=== PATIENT | female | born 1945 | race Caucasian/White ===

== ENCOUNTER 2020-05-17 10:27 | Inpatient (IN) | payer MEDICARE, OTHER, SELFPAY ==
[2020-05-17] VITALS (91 sets, daily range): BP systolic 88–124; BP diastolic 56–78; PULSE 74–99; RESP 12–27; TEMP 36.5–36.9; O2SAT 86–98; BMI 38.6; BMI 33.2
--- NOTE | 2020-05-17 10:41 | XR_ITS ---
WS: [id number] EXAM: AP CHEST: PORTABLE UPRIGHT DATE OF EXAM: 05/17/2020, 1051 hours COMPARISON: Chest x-ray from 03/03/2015 HISTORY: Patient is 74 years old with known COPD. Complaining shortness of breath. Positive for Covid-19 infec tion.. FINDINGS: The cardiac silhouette is normal in size. The mediastinal contours show slight calcified plaque. The pulmonary vascularity is normal. Chronic lung changes again seen. There has been interval devel opment of interstitial infiltrate or fibrosis within the mid and lower lung ramos peripherally in janeth th lungs. Upper lung zones for the most part appear to be spared. There is no effusion or pneumothor ax. No acute bony abnormality is seen. XR/XR chest 1V portable [id number] IMPRESSION: Chronic lung changes. Interval development of peripheral interstitial infiltrat e as described. Whether this represents progression of pulmonary fibrosis versu s interstitial pneumonitis is uncertain. Surveillance recommended.
--- NOTE | 2020-05-17 10:44 | W.ED.SOB ---
HPI - SOB/Dyspnea General: Chief Complaint: Shortness of Breath/Dyspnea Stated Complaint: shortness of breath Covid + Time Seen by Provider: 05/17/20 10:28 History of Present Illness: HPI Narrative: 74-year-old female who comes in complaining of shortness of breath. She has a known COVID positive patient. She initially began having symptoms about 10 days ago 5 days ago was swabbed for COVID and tested positive the result came back 3 days ago. Her was also tested in that same timeframe and was transferred out of our ER last night in the early hours of this morning with severe respiratory compromise. This patient is a known history of COPD and has had progressively worsening shortness of breath cough and congestion. She denies productive cough. She is not really had a fever at all. She has had significant myalgias as well. She is normally on 2 L/min oxygen and she is now requiring 3 to 4 L/min to maintain sats in the low 90s. MD elicited complaint: shortness of breath and cough Pertinent past history: COPD Onset (ago): day(s) Context: recent illness Timing: constant and progressively worsening Severity: severe Exacerbating factors: exertion Relieving factors: oxygen and rest Known history of: COPD and other (Known COVID positive patient) Associated symptoms: Reports chest congestion and cough; Deny abdominal pain, fever(s), nausea or vomiting Treatment prior to arrival: none Review of Systems Const: Denies: fever(s), chills, body aches, change in appetite, fatigue or malaise ENMT: Denies: throat pain, ear or mastoid pain, nasal discharge or nasal congestion Resp: Reports: chest congestion GI: Denies: abdominal pain, nausea, vomiting, hematemesis, coffee ground emesis, diarrhea, constipation, bloating, hematochezia or melena : Denies: flank pain, difficulty voiding, dysuria, urinary frequency or urinary urgency Skin/Breast: Denies: rash or pruritus PFSH ED PFSH: Medical History (Updated 05/17/20 @ 14:55 by Yovany Ricks DO) COPD (chronic obstructive pulmonary disease) Moderate to severe, last PFT from 2014 showed FEV1 47% Hypertension Surgical History (Updated 05/17/20 @ 14:45 by Dana Arrieta DO) No significant past surgical history Family History (Updated 05/17/20 @ 14:46 by Dana Arrieta DO) Father CAD (coronary artery disease) Social History (Updated 05/17/20 @ 14:46 by Dana Arrieta DO) Smoking and tobacco status: former smoker Alcohol intake: never Substance/Drug Use: never Household members: spouse Marital status: Current occupational status: retired Previous occupational history: Worked for the [employer] Department Physical Exam Const: COMMON NORMALS: no acute distress GENERAL APPEARANCE: cooperative and comfortable ORIENTATION/CONSCIOUSNESS: Yes awake, Yes oriented to person, Yes oriented to place and Yes oriented to time HENMT: COMMON NORMALS: normocephalic and atraumatic HEAD & SCALP: normocephalic and atraumatic Eye: COMMON NORMALS: Equal, round and reactive pupils present, EOMs intact bilaterally, conjunctivae normal and no scleral icterus CONJUNCTIVA: Yes conjunctivae normal PUPIL: Yes Equal, round and reactive pupils present Neck/C-Spine: COMMON NORMALS: full ROM, no lymphadenopathy, supple and no JVD Lymph: LYMPHATIC: no lymphadenopathy noted and no lymphedema noted Resp: AUSCULTATION: rhonchi and wheezes expiratory wheezes and throughout Cardio: COMMON NORMALS: no JVD, regular rate, regular rhythm and No murmurs present (Cardio) RATE: regular rate RHYTHM: regular rhythm GI: COMMON NORMALS: Soft to palpation and No hepatosplenomegaly present AUSCULTATION: Yes normoactive bowel sounds PALPATION: Yes Soft to palpation, No Tenderness to palpation present (GI), No Guarding due to palpation present (GI) and Yes No hepatosplenomegaly present Extremity: COMMON NORMALS: normal to inspection, capillary refill normal, no clubbing, cyanosis or edema, no calf tenderness and no pedal edema Neuro: SENSORIUM/ORIENTATION: Yes oriented to person, Yes oriented to place and Yes oriented to time Skin: COMMON NORMALS: no rashes or lesions noted GENERAL SKIN EXAM: no rashes or lesions noted Course Vital Signs: Vital signs: Vital Signs Temperature 98 F 05/17/20 13:00 Pulse Rate 86 05/17/20 14:25 Respiratory Rate 23 H 05/17/20 14:25 Blood Pressure 97/64 05/17/20 14:25 Pulse Oximetry 93 05/17/20 14:25 MDM - SOB/Dyspnea MDM Narrative: Medical decision making narrative: Reviewed her inflammatory labs she is known to be COVID positive she is requiring more oxygen than she normally is on 2 L/min discussed with Dr. Arrieta who is running the VICU this week we will go ahead and give her dexamethasone 6 mg started on room does severe the initial loading dose. Orders have been written patient will go to the VICU I have discussed the course of care with the patient she expressed understanding. Lab Data: Labs: Lab Results 05/17/20 05/17/20 05/17/20 Range/Units 10:37 10:49 10:49 WBC (4.0-10.0) 10^3/ uL RBC (4.1-5.3) 10^6/u L Hgb (11.5-15.3) g/dL Hct (37.0-47.0) % MCV (81-99) fL MCH (28.0-34.0) pg MCHC (30.0-36.0) g/dL RDW (12.1-15.1) % Plt Count (130-400) 10^3/c mm MPV (7.4-10.4) fL Neut % (Auto) % Lymph % (Auto) % [place] % (Auto) % Eos % (Auto) % Baso % (Auto) % Neut # (Auto) (1.8-7.7) 10^3/u L Lymph # (Auto) (0.8-4.8) 10^3/u L [place] # (Auto) (0.2-0.9) 10^3/u L Eos # (Auto) (0.0-0.8) 10^3/u L Baso # (Auto) (0.0-0.1) 10^3/u L Nucleated RBC % (a uto) % Nucleated RBCs # /100WBC PT 13.10 (12.1-14.9) SECO NDS INR 0.96 (0.8-1.2) APTT 29.7 (23.9-36.7) SECO NDS Fibrinogen 612 H (174-498) mg/dL D-Dimer 0.82 H (0-0.59) ug/mIFE U Specimen Type Arterial Sample Site Radial, left ABG pH 7.41 (7.35-7.45) ABG pCO2 35.5 (35-45) mmHg ABG pO2 59.9 L (80.0-100.0) mmH g ABG HCO3 22.2 (22-26) mmol/L ABG O2 Saturation 92.7 ABG Base Excess -1.9 (-2.0-2.0) mmol/ L Lonnie Test Pos A-a O2 Gradient 19.8 H (5-10) mmHg Hematocrit 50.8 H (37-47) % Hgb O2 Saturation 91.1 L (95-100) % Carboxyhemoglobin 0.9 (0.4-20.1) %THgb Methemoglobin 0.8 (0.4-1.5) % Total Hemoglobin 16.6 H (12-16) g/dL Sodium 128.0 L 128 L (131-143) mmol/L Potassium 4.0 4.2 (3.5-5.0) mmol/L Glucose 106.0 108 (70-115) mg/dL Ionized Calcium 1.1 (1.1-1.4) mmol/L O2 Delivery Device Nc O2 Liters/Min 4.0 % FiO2 36.0 % Senior Data Developer ID Cak Chloride 91 L (98-107) mmol/L Carbon Dioxide 23 (22-29) mmol/L Anion Gap 18.2 (5-19) BUN 37 H (8-23) mg/dL Creatinine 1.3 H (0.5-0.9) mg/dL GFR Calculation Not Reportable Calculated Osmolal ity 264 L (285-295) mOsm/k g Lactic Acid (0.5-2.2) mmol/L Calcium 8.4 L (8.5-10.5) mg/dL Magnesium 1.9 (1.7-2.3) mg/dL Total Bilirubin 0.6 (0.15-1.2) mg/dL AST 23 (0-32) U/L ALT 25 (0-33) U/L Alkaline Phosphata se 70 (35-105) IU/L Lactate Dehydrogen ase 337 H (135-214) U/L C-Reactive Protein 114.6 H (0.0-4.9) mg/L NT-Pro-B Natriuret Pep 107 (0-125) pg/mL Total Protein 7.4 (6.6-8.7) g/dL Albumin 3.8 (3.5-5.2) g/dL Globulin 3.6 (1.3-4.6) g/dL Procalcitonin 0.33 (0-0.5) ng/mL 05/17/20 05/17/20 Range/Units 10:49 10:49 WBC 7.5 (4.0-10.0) 10^3/ uL RBC 5.47 H (4.1-5.3) 10^6/u L Hgb 15.9 H (11.5-15.3) g/dL Hct 48.6 H (37.0-47.0) % MCV 88.8 (81-99) fL MCH 29.1 (28.0-34.0) pg MCHC 32.7 (30.0-36.0) g/dL RDW 14.3 (12.1-15.1) % Plt Count 243 (130-400) 10^3/c mm MPV 9.5 (7.4-10.4) fL Neut % (Auto) 80.9 % Lymph % (Auto) 8.9 % [place] % (Auto) 8.9 % Eos % (Auto) 0.1 % Baso % (Auto) 0.3 % Neut # (Auto) 6.03 (1.8-7.7) 10^3/u L Lymph # (Auto) 0.7 L (0.8-4.8) 10^3/u L Dallas # (Auto) 0.7 (0.2-0.9) 10^3/u L Eos # (Auto) 0.0 (0.0-0.8) 10^3/u L Baso # (Auto) 0.0 (0.0-0.1) 10^3/u L Nucleated RBC % (a uto) 0 % Nucleated RBCs # 0.0 /100WBC PT (12.1-14.9) SECO NDS INR (0.8-1.2) APTT (23.9-36.7) SECO NDS Fibrinogen (174-498) mg/dL D-Dimer (0-0.59) ug/mIFE U Specimen Type Sample Site ABG pH (7.35-7.45) ABG pCO2 (35-45) mmHg ABG pO2 (80.0-100.0) mmH g ABG HCO3 (22-26) mmol/L ABG O2 Saturation ABG Base Excess (-2.0-2.0) mmol/ L Lonnie Test A-a O2 Gradient (5-10) mmHg Hematocrit (37-47) % Hgb O2 Saturation (95-100) % Carboxyhemoglobin (0.4-20.1) %THgb Methemoglobin (0.4-1.5) % Total Hemoglobin (12-16) g/dL Sodium (131-143) mmol/L Potassium (3.5-5.0) mmol/L Glucose (70-115) mg/dL Ionized Calcium (1.1-1.4) mmol/L O2 Delivery Device O2 Liters/Min % FiO2 % Senior Data Developer ID Chloride (98-107) mmol/L Carbon Dioxide (22-29) mmol/L Anion Gap (5-19) BUN (8-23) mg/dL Creatinine (0.5-0.9) mg/dL GFR Calculation Calculated Osmolal ity (285-295) mOsm/k g Lactic Acid 1.1 (0.5-2.2) mmol/L Calcium (8.5-10.5) mg/dL Magnesium (1.7-2.3) mg/dL Total Bilirubin (0.15-1.2) mg/dL AST (0-32) U/L ALT (0-33) U/L Alkaline Phosphata se (35-105) IU/L Lactate Dehydrogen ase (135-214) U/L C-Reactive Protein (0.0-4.9) mg/L NT-Pro-B Natriuret Pep (0-125) pg/mL Total Protein (6.6-8.7) g/dL Albumin (3.5-5.2) g/dL Globulin (1.3-4.6) g/dL Procalcitonin (0-0.5) ng/mL Discharge Plan Discharge Patient Disposition: Admitted As Inpatient Admit Provider: Dana Arrieta Clinical Impression: COVID-19, COPD (chronic obstructive pulmonary disease), Obstructive sleep apnea, Hypertension Condition: Stable Interventions: ED Discharge Assessment Last Done: 05/17/20 12:32 ED Charges Last Done: 05/17/20 12:32 Discharge Date/Time: 05/17/20 12:33 Coding Level of Care Code ED Bakery Worker Conveyor Line for g Fwd Exam Comprehensive
[2020-05-17 10:49] LABS: ABG PCO2 35.5 mmHg (35-45); ABG PH Result 7.41 (7.35-7.45); Alveolar-Arterial Oxygen Gradi 19.8 mmHg (5-10); Arterial Blood Gas Hematocrit 50.8 % (37-47); Base Excess ABG -1.9 mmol/L (-2.0-2.0); Blood Gas Allen Test Pos; Blood Gas Operator Identificat CAK; Blood Gas Sample Site Radial, left; Blood Gas Sample Type Arterial; Carboxyhemoglobin 0.9 %THgb (0.4-20.1); HCO3 ABG 22.2 mmol/L (22-26); HGB O2 Sat 91.1 % (95-100); Ionized Calcium Level - ABG 1.1 mmol/L (1.1-1.4); Methemoglobin 0.8 % (0.4-1.5); Oxygen Device NC; Oxygen Saturation ABG 92.7; PO2 ABG 59.9 mmHg (80.0-100.0); Total Hemoglobin 16.6 g/dL (12-16)
[2020-05-17 11:01] LABS: Basophils % 0.3 %; Eosinophils % 0.1 %; Hematocrit 48.6 % (37.0-47.0); Hemoglobin 15.9 g/dL (11.5-15.3); Lymphocytes # 0.7 10^3/uL (0.8-4.8); Lymphocytes % 8.9 %; Mean Corpuscular HGB Conc 32.7 g/dL (30.0-36.0); Mean Corpuscular Hemoglobin 29.1 pg (28.0-34.0); Mean Corpuscular Volume 88.8 fL (81-99); Mean Platelet Volume 9.5 fL (7.4-10.4); Monocytes # 0.7 10^3/uL (0.2-0.9); Monocytes % 8.9 %; Neutrophils # 6.03 10^3/uL (1.8-7.7); Neutrophils % 80.9 %; Nucleated Red Blood Cells % 0 %; Platelet Count 243 10^3/cmm (130-400); Red Blood Count 5.47 10^6/uL (4.1-5.3); Red Cell Distribution Width 14.3 % (12.1-15.1); White Blood Count 7.5 10^3/uL (4.0-10.0)
[2020-05-17 11:13] LABS: INR 0.96 (0.8-1.2)
[2020-05-17 11:14] LABS: Fibrinogen 612 mg/dL (174-498); Partial Thromboplastin Time 29.7 SECONDS (23.9-36.7)
[2020-05-17 11:17] LABS: D Dimer 0.82 ug/mIFEU (0-0.59)
[2020-05-17 11:18] LABS: Lactic Sepsis W/Reflex 1.1 mmol/L (0.5-2.2)
[2020-05-17] MEDS: albuterol 8 gm MDI 2 PUFF INHALATION (11:24)
[2020-05-17 11:29] LABS: NT Pro B Type Natriuretic Pept 107 pg/mL (0-125); Procalcitonin 0.33 ng/mL (0-0.5)
[2020-05-17] MEDS: dexamethasone 10 mg/mL INJ 6 MG IVP (11:29)
--- NOTE | 2020-05-17 11:30 | ECG_ITS ---
[facility] Test Date: 2020-05-17 Pat Name: Dorothy Ardon Department: Room: ICU19 Gender: Female Animal Care Giver: : 1945 Requested By: Yovany Pickering Order Number: [id number] Shabana MD: Jim Hung M.D. Measurements Intervals Runge Rate: 94 P: 71 MD: 167 QRS: -3 QRSD: 84 T: 50 QT: 350 QTc: 438 Interpretive Statements SINUS RHYTHM INDETERMINATE AXIS PATTERN CONSISTENT WITH PULMONARY DISEASE Inferior myocardial infarction probably old No previous ECG available for comparison Electronically Signed On 05-17-2020 19:16:42 CDT by Jim Hung M.D. [email or web address]
[2020-05-17 11:40] LABS: Alanine Aminotransferase 25 U/L (0-33); Albumin Level 3.8 g/dL (3.5-5.2); Alkaline Phosphatase 70 IU/L (35-105); Anion Gap 18.2 (5-19); Aspartate Amino Transferase 23 U/L (0-32); Blood Urea Nitrogen 37 mg/dL (8-23); C Reactive Protein 114.6 mg/L (0.0-4.9); Calcium 8.4 mg/dL (8.5-10.5); Carbon Dioxide 23 mmol/L (22-29); Chloride 91 mmol/L (98-107); Globulin 3.6 g/dL (1.3-4.6); Glucose 108 mg/dL (65-115); Lactate Dehydrogenase 337 U/L (135-214); Magnesium 1.9 mg/dL (1.7-2.3); Osmolality Calculated 264 mOsm/kg (285-295); Potassium 4.2 mmol/L (3.5-5.1); Sodium 128 mmol/L (136-145); Total Bilirubin 0.6 mg/dL (0.15-1.2); Total Protein 7.4 g/dL (6.6-8.7)
--- NOTE | 2020-05-17 13:24 | PC.NURSE ---
patient transfered herself with standby assist to her new bed while in the [place] then we brought her into room 1 of [facility]. she is tired. was sating 90 on 4 liters so went to 5 liters. albuterol inhaler at bedside.
--- NOTE | 2020-05-17 14:31 | NUR.SHIFT ---
scds ordered but at this time none available
--- NOTE | 2020-05-17 14:42 | PM.HP ---
Providers/Chief Complaint Admitting Physician: Dana Arrieta DO Primary Care Provider: Marlene Nesbitt APN Chief Complaint: shortness of breath Covid + History of Present Illness Dorothy Ardon is a 74 year old female with a past medical history of COPD and obstructive sleep apnea that presented to the emergency department today for increasing shortness of breath. Patient had been seen on Tuesday due to symptoms of increasing cough and shortness of breath as well as fatigue that started over last weekend. Patient reports that 2 weeks ago she was exposed to her brother who was positive for COVID-19, he was not aware of this at that time. Patient reports that her symptoms began to progress over the past week to the point that she had to come into the ER today for further evaluation and treatment. She reports that she has had productive cough, shortness of breath, loss of sense of smell and taste, generalized malaise and fatigue. Patient reports that her was seen and evaluated in the emergency department last night required to an outside facility as he required intubation due to COVID-19 viral pneumonia. Patient reports that she is chronically on 2 L of oxygen by nasal cannula at baseline, follows with a trolley car overhauler in [place]. Review of Systems Const: Reports: chills, body aches, fatigue and malaise; Denies: fever(s) Eyes: Denies: change in vision ENMT: Reports: other (Loss of smell, loss of taste); Denies: nasal congestion Card: Denies: chest pain, palpitations or edema Resp: Reports: dyspnea and productive cough; Denies: hemoptysis GI: Reports: nausea and diarrhea; Denies: abdominal pain, vomiting, constipation, hematochezia or melena : Denies: dysuria or hematuria Musc: Denies: extremity pain or muscle cramps Skin/Breast: Denies: rash or new lesions Neuro: Denies: headache(s) or dizziness Psych: Denies: anxiety or depression Endo: Denies: polyuria or hot flashes Edwardo/Lymph: Denies: easy bruising or easy bleeding Medications/Allergies Home Medications Medication Instructions Recorded Confirmed Last Taken Type Symbicort 05/17/20 Unknown History aspirin [Aspirin Childrens] 81 mg PO DAILY 05/17/20 05/17/20 Unknown History cholecalciferol (vitamin D3) 50,000 unit PO DAILY 05/17/20 05/17/20 Unknown History [Vitamin D3] lisinopril 2.5 mg PO DAILY 05/17/20 05/17/20 Unknown History triamterene-hydrochlorothiazid 1 cap PO DAILY 05/17/20 05/17/20 Unknown History Allergies Allergy/AdvReac Type Severity Reaction Status Date / Time No Known Allergies Allergy Verified 05/17/20 13:55 PFSH Acute PFSH: Medical History (Updated 05/17/20 @ 14:46 by Dana Arrieta DO) COPD (chronic obstructive pulmonary disease) Moderate to severe, last PFT from 2014 showed FEV1 47% Hypertension Surgical History (Updated 05/17/20 @ 14:45 by Dana Arrieta DO) No significant past surgical history Family History (Updated 05/17/20 @ 14:46 by Dana Arrieta DO) Father CAD (coronary artery disease) Social History (Updated 05/17/20 @ 14:46 by Dana Arrieta DO) Smoking and tobacco status: former smoker Alcohol intake: never Substance/Drug Use: never Household members: spouse Marital status: Current occupational status: retired Previous occupational history: Worked for the [employer] Female Reproductive History: Date of last menstrual period: 05/15/00 Vitals/I&O/Wt Last Vital Signs Temp 98 F 05/17/20 13:00 Pulse 86 05/17/20 14:25 Resp 23 H 05/17/20 14:25 BP 97/64 05/17/20 14:25 Pulse Ox 93 05/17/20 14:25 Weight last 48 hrs Weight 93.44 kg Weight 98.883 kg Physical Exam Const: COMMON NORMALS: patient oriented x3 and alert GENERAL APPEARANCE: cooperative and ill appearing ORIENTATION/CONSCIOUSNESS: Yes awake, Yes oriented to person, Yes oriented to place and Yes oriented to time HENMT: COMMON NORMALS: normocephalic and atraumatic HEAD & SCALP: normocephalic and atraumatic Eye: COMMON NORMALS: Equal, round and reactive pupils present PUPIL: Yes Equal, round and reactive pupils present Neck/C-Spine: COMMON NORMALS: supple GENERAL: Yes normal visual inspection Resp: COMMON NORMALS: normal respiratory effort EFFORT & INSPECTION: Yes symmetric chest movement and Yes tachypneic AUSCULTATION: no rhonchi and no wheezes OTHER: Diminished breath sounds bilaterally with prolonged expiratory phase Cardio: COMMON NORMALS: regular rate, regular rhythm and No murmurs present (Cardio) RATE: regular rate RHYTHM: regular rhythm GI: COMMON NORMALS: Soft to palpation and non-tender INSPECTION: No abdominal distension AUSCULTATION: Yes normoactive bowel sounds PALPATION: Yes Soft to palpation : COMMON NORMALS: Yes no CVA tenderness BLADDER/KIDNEY EXAM: Yes no CVA tenderness Back/Pelvis: COMMON NORMALS: no CVA tenderness Extremity: COMMON NORMALS: no clubbing, cyanosis or edema and no calf tenderness Neuro: COMMON NORMALS: patient oriented x3, CN's II-XII intact bilaterally, moves all extremities and no focal motor deficits SENSORIUM/ORIENTATION: Yes alert, Yes oriented to person, Yes oriented to place and Yes oriented to time SPEECH: speech normal Psych: COMMON NORMALS: mental status grossly normal and cooperative Skin: COMMON NORMALS: no rashes or lesions noted GENERAL SKIN EXAM: no rashes or lesions noted Data : 05/17/20 10:49 05/17/20 10:49 Micro: Microbiology 05/17/20 12:12 Blood Culture - Preliminary Blood SPECIMEN COLLECTED 05/17/20 10:49 Blood Culture - Preliminary Blood SPECIMEN COLLECTED CXR: I personally reviewed and interpreted this imaging study as follows: Radiologist's impression: IMPRESSION: Chronic lung changes. Interval development of peripheral interstitial infiltrate as described. Whether this represents progression of pulmonary fibrosis versus interstitial pneumonitis is uncertain. Surveillance recommended. A&P Assessment and plan (1) COVID-19: Inpatient admission Oxygen per protocol, currently on 4.5 L of oxygen by nasal cannula, continue to titrate as needed Continue with home CPAP Discussed with patient the risk and benefits of starting on treatment for COVID-19, discussed with her the risk and benefits of dexamethasone and Remdesivir, patient agreed to start treatment and verbalized understanding and agreed with plan Ordered Combivent inhaler Incentive spirometer and flutter valve at bedside, encouraged to use every hour Continue supportive care Status: Acute (2) COPD (chronic obstructive pulmonary disease): Patient with moderate to severe COPD which complicates #1 Last PFTs in our system from 2015 Continue with inhalers as noted above Oxygen per protocol Status: Acute (3) Obstructive sleep apnea: Continue with home CPAP Status: Acute (4) Hypertension: Blood pressure soft at this time, hold lisinopril, hold triamterene HCTZ Also holding HCTZ due to hyponatremia Status: Acute Additional A&P Information Hyponatremia: Likely secondary to decreased oral intake and HCTZ, holding HCTZ at this time Acute kidney injury: Appears to be prerenal, will give very gentle IV fluids and monitor intake and output closely. Recheck labs in the morning. Hold GEOFFREY inhibitor DVT prophylaxis: Lovenox Diet: Regular CODE STATUS: Limited resuscitation. DO NOT RESUSCITATE, patient is okay with short-term intubation if respiratory status declines. This was discussed with patient on admission on 05/17/2020 Attestations Medical Necessity Statement*: Patient requires hospitalization due to COVID-19 viral pneumonia. Expected stay greater than 2 midnights Coding Level of Care Code Acute Tile Layer Drainage for Kimo Fwd Diagnoses COVID-19 U07.1 COPD (chronic obstructive pulmonary disease) J44.9 Obstructive sleep apnea G47.33 Hypertension I10
[2020-05-17] MEDS: enoxaparin 40 mg/0.4 mL Syringe SUBCUT (15:14)
[2020-05-17] MEDS: sodium chloride 0.9% 1,000 ML 30 ML IV (15:14)
[2020-05-17] MEDS: ascorbic acid 500 mg Tablet PO (15:15)
--- NOTE | 2020-05-17 17:22 | PC.NURSE ---
albuterol given per rt when they put patient on heated high flow at 50%, i administered advair at that time and swish an spit performed after medication given.
[2020-05-17] MEDS: guaiFENesin 100 mg/5 mL UDC 10 mL 400 MG PO (17:44)
--- NOTE | 2020-05-17 18:02 | PC.NURSE ---
30 % airflow, 44% oxygen, sats now at 93 to 94.
--- NOTE | 2020-05-17 20:00 | PC.NURSE ---
Patient does not currently have any wounds to document on for the wound assessment.
[2020-05-18] VITALS (31 sets, daily range): BP systolic 89–139; BP diastolic 52–94; PULSE 64–95; RESP 11–28; TEMP 36.6; O2SAT 86–95
--- NOTE | 2020-05-18 03:15 | PC.NURSE ---
Patient's O2 saturation staying around 87-88% on current O2 settings. After discussing patient's plan of care with Peter SUNG, patient's high-flow O2 was increased to 50%. See vital sign flowsheet for details. Will continue to monitor closely
--- NOTE | 2020-05-18 04:49 | PC.NURSE ---
Please see CSU Charge list for patient charges.
[2020-05-18 05:04] LABS: D Dimer 1.17 ug/mIFEU (0-0.59)
[2020-05-18 06:17] LABS: Basophils % 0.3 %; Hematocrit 45.3 % (37.0-47.0); Hemoglobin 14.8 g/dL (11.5-15.3); Lymphocytes # 0.4 10^3/uL (0.8-4.8); Mean Corpuscular HGB Conc 32.7 g/dL (30.0-36.0); Mean Corpuscular Hemoglobin 29.9 pg (28.0-34.0); Mean Corpuscular Volume 91.5 fL (81-99); Mean Platelet Volume 9.7 fL (7.4-10.4); Monocytes # 0.4 10^3/uL (0.2-0.9); Monocytes % 13.2 %; Neutrophils # 2.44 10^3/uL (1.8-7.7); Nucleated Red Blood Cells % 0 %; Platelet Count 227 10^3/cmm (130-400); Red Blood Count 4.95 10^6/uL (4.1-5.3); Red Cell Distribution Width 14.5 % (12.1-15.1); White Blood Count 3.3 10^3/uL (4.0-10.0)
[2020-05-18 06:31] LABS: Alanine Aminotransferase 25 U/L (0-33); Albumin Level 3.4 g/dL (3.5-5.2); Alkaline Phosphatase 61 IU/L (35-105); Blood Urea Nitrogen 43 mg/dL (8-23); C Reactive Protein 101.6 mg/L (0.0-4.9); Calcium 8.1 mg/dL (8.5-10.5); Carbon Dioxide 23 mmol/L (22-29); Chloride 92 mmol/L (98-107); Globulin 3.3 g/dL (1.3-4.6); Glucose 119 mg/dL (65-115); Osmolality Calculated 263 mOsm/kg (285-295); Sodium 127 mmol/L (136-145); Total Bilirubin 0.4 mg/dL (0.15-1.2); Total Protein 6.7 g/dL (6.6-8.7)
--- NOTE | 2020-05-18 06:57 | XR_ITS ---
WS: [id number] EXAM: AP CHEST: PORTABLE UPRIGHT DATE OF EXAM: 05/18/2020, 0739 hours COMPARISON: Chest x-rays from 05/17/2020 and 03/03/2015 HISTORY: Patient is 74 years old with : 19 pneumonia. Hypoxemia.. FINDINGS: The cardiac silhouette is stable. Considered upper limits of normal to minimally enlarged. The medi astinal contours are similar. Calcified plaque in the aorta. The pulmonary vascularity is slightly c ongested. Chronic lung changes seen. Peripheral coarse interstitial patchy infiltrates are seen withi n both lungs. Definitely worsened since the 03/03/2015 exam. Similar to imaging from one day prior. How much of this has to do with progression of fibrosis is uncertain. I suspect there is some acute comp onent of pneumonitis. There is no effusion or pneumothorax. No acute bony abnormality is seen. XR/XR chest 1V portable [id number] IMPRESSION: Chronic lung changes. No real short-term change in interstitial infiltrate/fibr osis. Definitely worsened since 2014.
[2020-05-18 07:01] LABS: Ferritin 1183 ng/mL (15-150)
[2020-05-18 07:02] LABS: Anion Gap 16.6 (5-19); Aspartate Amino Transferase 24 U/L (0-32); Lactate Dehydrogenase 363 U/L (135-214); Potassium 4.6 mmol/L (3.5-5.1)
[2020-05-18] MEDS: ascorbic acid 500 mg Tablet PO ×2 (08:54→17:50)
[2020-05-18] MEDS: dexamethasone 10 mg/mL INJ 6 MG IVP (08:55)
[2020-05-18] MEDS: aspirin 81 mg Chew Tablet PO (08:55)
[2020-05-18] MEDS: NON-FORMULARY MEDICATION (Cholecalciferol (Vitamin D3) [Vitamin D3] 50,000 UNIT) 50000 EACH PO (08:55)
--- NOTE | 2020-05-18 11:11 | PM.PN ---
Subjective Subjective: Interval history: Patient awake in bed at time of exam. Reports that her breathing feels a little bit better today. She reports continued cough. Patient denies any chest pain, no abdominal pain. Reported that she was able to take some of her breakfast this morning. Vitals/I&O/Wt Last Vital Signs Temp 97.9 F 05/18/20 00:00 Pulse 80 05/18/20 09:15 Resp 20 H 05/18/20 09:10 BP 120/74 05/18/20 08:00 Pulse Ox 95 05/18/20 09:10 05/17/20 05/18/20 05/18/20 22:59 06:59 14:59 Intake Total 200 / 200 120 / 120 Output Total 500 / 500 0 / 500 900 / 900 Balance -300 / -300 0 / -300 -780 / -780 Weight last 48 hrs Weight 90.718 kg Weight 93.44 kg Weight 98.883 kg Physical Exam Const: COMMON NORMALS: patient oriented x3 and alert GENERAL APPEARANCE: cooperative and ill appearing ORIENTATION/CONSCIOUSNESS: Yes awake, Yes oriented to person, Yes oriented to place and Yes oriented to time HENMT: COMMON NORMALS: normocephalic and atraumatic HEAD & SCALP: normocephalic and atraumatic Eye: COMMON NORMALS: Equal, round and reactive pupils present PUPIL: Yes Equal, round and reactive pupils present Neck/C-Spine: COMMON NORMALS: supple GENERAL: Yes normal visual inspection Resp: COMMON NORMALS: normal respiratory effort EFFORT & INSPECTION: Yes symmetric chest movement and Yes tachypneic AUSCULTATION: no rhonchi and no wheezes OTHER: Diminished breath sounds bilaterally with prolonged expiratory phase Cardio: COMMON NORMALS: regular rate, regular rhythm and No murmurs present (Cardio) RATE: regular rate RHYTHM: regular rhythm GI: COMMON NORMALS: Soft to palpation and non-tender INSPECTION: No abdominal distension AUSCULTATION: Yes normoactive bowel sounds PALPATION: Yes Soft to palpation Extremity: COMMON NORMALS: no clubbing, cyanosis or edema and no calf tenderness Neuro: COMMON NORMALS: patient oriented x3, CN's II-XII intact bilaterally, moves all extremities and no focal motor deficits SENSORIUM/ORIENTATION: Yes alert, Yes oriented to person, Yes oriented to place and Yes oriented to time SPEECH: speech normal Psych: COMMON NORMALS: mental status grossly normal and cooperative Skin: COMMON NORMALS: no rashes or lesions noted GENERAL SKIN EXAM: no rashes or lesions noted Data : 05/18/20 05:45 05/18/20 05:45 Micro: Microbiology 05/17/20 10:49 Blood Culture - Preliminary Blood NEGATIVE TO DATE 05/17/20 14:45 Gram Stain - Final Sputum - Expectorated Sputum 05/17/20 12:12 Blood Culture - Preliminary Blood SPECIMEN COLLECTED A&P Assessment and plan (1) COVID-19: Patient required high flow oxygen nasal cannula overnight Currently weaned down to 4 L by nasal cannula Goal oxygen saturation of 90 to 92% Continue on dexamethasone and Remdesivir, patient agreed to start treatment and verbalized understanding and agreed with plan Ordered Combivent inhaler Incentive spirometer and flutter valve at bedside, encouraged to use every hour Continue supportive care Status: Acute (2) COPD (chronic obstructive pulmonary disease): Patient with moderate to severe COPD which complicates #1 Last PFTs in our system from 2015 Continue with inhalers as noted above Oxygen per protocol Status: Acute (3) Obstructive sleep apnea: Continue with home CPAP Status: Acute (4) Hypertension: Blood pressure soft at this time, hold lisinopril, hold triamterene HCTZ Also holding HCTZ due to hyponatremia Status: Acute Additional A&P Information Hyponatremia: Likely secondary to decreased oral intake and HCTZ, holding HCTZ at this time Acute kidney injury: Appears to be prerenal, will give very gentle IV fluids and monitor intake and output closely. Recheck labs in the morning. Hold GEOFFREY inhibitor DVT prophylaxis: Lovenox Diet: Regular CODE STATUS: Limited resuscitation. DO NOT RESUSCITATE, patient is okay with short-term intubation if respiratory status declines. This was discussed with patient on admission on 05/17/2020 Called and discussed with patient's sister, Dianelys. Updated her on condition and plan of care. She verbalized understanding Attestations Medical Necessity Statement*: Patient requires continued hospitalization due to COVID-19 viral pneumonia Coding Level of Care Code Acute Acquisitions Assistant for [employer] Fwd Diagnoses COVID-19 U07.1 COPD (chronic obstructive pulmonary disease) J44.9 Obstructive sleep apnea G47.33 Hypertension I10
[2020-05-18] MEDS: enoxaparin 40 mg/0.4 mL Syringe SUBCUT (13:08)
[2020-05-18] MEDS: sodium chloride 0.9% 1,000 ML 30 ML IV (13:09)
--- NOTE | 2020-05-18 18:17 | PC.NURSE ---
while geting pt up to restroom pt o2 droped to 87 86 rate at 3 liters .turned pt 02 up to 4 liters while walking to restroom turned pt back down to [address] back from rest room got pt back to bed 02 was at 81 on 3 liters after she rested bout 3 min her 02 was at 89 to 90 on 3 liters
--- NOTE | 2020-05-18 18:20 | PC.NURSE ---
Patient continues to tolerate 3L nasal cannula at rest, however desaturation to 81% noted while ambulating to bathroom. Pt's O2 increased and sat quickly recovered to 90% on 5L nc. After pt returned to bed O2 was decreased back to 3L, pt tolerating well.
[2020-05-19] VITALS (25 sets, daily range): BP systolic 92–166; BP diastolic 52–100; PULSE 58–88; RESP 17–25; TEMP 36.7–37.3; O2SAT 86–92
[2020-05-19 06:19] LABS: Basophils % 0.2 %; Hematocrit 47.6 % (37.0-47.0); Hemoglobin 15.5 g/dL (11.5-15.3); Lymphocytes # 0.6 10^3/uL (0.8-4.8); Mean Corpuscular HGB Conc 32.6 g/dL (30.0-36.0); Mean Corpuscular Hemoglobin 29.8 pg (28.0-34.0); Mean Corpuscular Volume 91.4 fL (81-99); Mean Platelet Volume 9.8 fL (7.4-10.4); Monocytes # 0.6 10^3/uL (0.2-0.9); Monocytes % 12.1 %; Neutrophils # 3.93 10^3/uL (1.8-7.7); Neutrophils % 75.5 %; Nucleated Red Blood Cells % 0 %; Platelet Count 316 10^3/cmm (130-400); Red Blood Count 5.21 10^6/uL (4.1-5.3); Red Cell Distribution Width 14.4 % (12.1-15.1); White Blood Count 5.2 10^3/uL (4.0-10.0)
[2020-05-19 06:36] LABS: D Dimer 0.49 ug/mIFEU (0-0.59)
[2020-05-19] MEDS: aspirin 81 mg Chew Tablet PO (09:19)
[2020-05-19] MEDS: dexamethasone 10 mg/mL INJ 6 MG IVP (09:19)
[2020-05-19] MEDS: sodium chloride 0.9% 1,000 ML 30 ML IV (09:19)
[2020-05-19] MEDS: ascorbic acid 500 mg Tablet PO ×2 (09:19→18:03)
[2020-05-19 10:50] LABS: Alanine Aminotransferase 23 U/L (0-33); Albumin Level 3.4 g/dL (3.5-5.2); Alkaline Phosphatase 66 IU/L (35-105); Aspartate Amino Transferase 18 U/L (0-32); Blood Urea Nitrogen 34 mg/dL (8-23); C Reactive Protein 36.3 mg/L (0.0-4.9); Calcium 8.4 mg/dL (8.5-10.5); Carbon Dioxide 28 mmol/L (22-29); Chloride 98 mmol/L (98-107); Globulin 3.3 g/dL (1.3-4.6); Glucose 158 mg/dL (65-115); Lactate Dehydrogenase 329 U/L (135-214); Osmolality Calculated 279 mOsm/kg (285-295); Sodium 134 mmol/L (136-145); Total Bilirubin 0.5 mg/dL (0.15-1.2); Total Protein 6.7 g/dL (6.6-8.7)
[2020-05-19 11:02] LABS: Ferritin 1232 ng/mL (15-150)
--- NOTE | 2020-05-19 14:05 | PC.RESP ---
PULMONARY REHAB INFORMATION SENT TO PATIENT.
--- NOTE | 2020-05-19 15:49 | P.PN_ITS ---
Subjective Subjective: Interval history: Patient reports feeling better this afternoon. Continues to have cough which is nonproductive. Denies chest pain. Continues to be somewhat short of breath. Denies abdominal pain. Reports that her taste is coming back. Vitals/I&O/Wt Last Vital Signs Temp 99.1 F 05/19/20 07:00 Pulse 80 05/19/20 12:00 Resp 23 H 05/19/20 12:00 BP 118/55 05/19/20 12:00 Pulse Ox 90 05/19/20 12:00 05/19/20 05/19/20 05/19/20 06:59 14:59 22:59 Intake Total 605 / 605 Output Total 700 / 700 Balance -95 / -95 Weight last 48 hrs Weight 96.706 kg Weight 90.718 kg Physical Exam Const: COMMON NORMALS: no acute distress and patient oriented x3 Resp: COMMON NORMALS: normal respiratory effort OTHER: Rales throughout but mostly bases with overall decreased air movement. Cardio: COMMON NORMALS: regular rate, regular rhythm and S2 normal heart sound present RATE: regular rate RHYTHM: regular rhythm HEART SOUNDS: S2 normal heart sound present OTHER: No lower extremity edema GI: COMMON NORMALS: Normal to inspection, nondistended, normoactive bowel sounds present, Soft to palpation and non-tender PALPATION: Yes Soft to palpation Neuro: COMMON NORMALS: patient oriented x3 and no focal motor deficits Data : 05/19/20 05:24 05/19/20 10:20 Micro: Microbiology 05/17/20 14:45 Gram Stain - Final Sputum - Expectorated Sputum Sputum Culture - Preliminary 05/17/20 12:12 Blood Culture - Preliminary Blood NEGATIVE TO DATE 05/17/20 10:49 Blood Culture - Preliminary Blood NEGATIVE TO DATE A&P Assessment and plan (1) COVID-19: Patient required high flow oxygen nasal cannula overnight Currently weaned down to 4 L by nasal cannula Goal oxygen saturation of 90 to 92% Continue on dexamethasone and Remdesivir, patient agreed to start treatment and verbalized understanding and agreed with plan Ordered Combivent inhaler Incentive spirometer and flutter valve at bedside, encouraged to use every hour Continue supportive care Status: Acute (2) COPD (chronic obstructive pulmonary disease): Patient with moderate to severe COPD which complicates #1 Last PFTs in our system from 2014 Continue with inhalers as noted above Oxygen per protocol Status: Acute (3) Obstructive sleep apnea: Continue with home CPAP Status: Acute (4) Hypertension: Blood pressure soft at this time, hold lisinopril, hold triamterene HCTZ Also holding HCTZ due to hyponatremia Status: Acute Additional A&P Information Hyponatremia: Likely secondary to decreased oral intake and HCTZ, holding HCTZ at this time Acute kidney injury: Appears to be prerenal, will give very gentle IV fluids and monitor intake and output closely. Recheck labs in the morning. Hold GEOFFREY inhibitor DVT prophylaxis: Lovenox Diet: Regular CODE STATUS: Limited resuscitation. DO NOT RESUSCITATE, patient is okay with short-term intubation if respiratory status declines. This was discussed with patient on admission on 05/17/2020 Called and discussed with patient's sister, Dianelys. Updated her on condition and plan of care. She verbalized understanding PLAN: Continue steroid and remdesevir. Continue close monitoring. We will discontinue IV fluids. Encouraged oral intake. Awaiting sputum culture. Consider adding antibiotic if not improving. Attestations Medical Necessity Statement*: COVID-19 requires close ICU monitoring and treatment due to high risk of deterioration. 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
[2020-05-19] MEDS: enoxaparin 40 mg/0.4 mL Syringe SUBCUT (16:30)
--- NOTE | 2020-05-19 18:45 | PC.NURSE ---
Received report on patient from Brianna Skelton RN. Assumed care at this time.
--- NOTE | 2020-05-19 22:30 | PC.NURSE ---
Patients oxygen sats drop while she is sleeping. Asked patient if she wanted to go back on the HLNC and she stated No It makes me feel like I'm drowning . Patient stated that she just wants her oxygen turned up. Peter in [place] notified.
[2020-05-20] VITALS (25 sets, daily range): BP systolic 100–169; BP diastolic 52–145; PULSE 65–100; RESP 14–24; TEMP 36.3–37.1; O2SAT 86–93
--- NOTE | 2020-05-20 02:56 | PC.NURSE ---
Patient up and ambulated to the bathroom with stand by assist. Patient becomes very short of breath with any activity. Returned to bed and oxygen turned up to 5 liters. Informed patient that after her breathing slows down and her sats come back up I will turned the oxygen down. Patient verbalized understanding and was in agreement. Peter in [place] notified.
[2020-05-20] MEDS: ascorbic acid 500 mg Tablet PO ×2 (08:39→17:40)
[2020-05-20] MEDS: aspirin 81 mg Chew Tablet PO (08:39)
[2020-05-20] MEDS: dexamethasone 10 mg/mL INJ 6 MG IVP (08:39)
[2020-05-20] MEDS: acetaminophen 325 mg Tablet 650 MG PO (12:08)
--- NOTE | 2020-05-20 13:22 | PM.PN ---
Subjective Subjective: Interval history: Patient reports further improving. Denies shortness of breath or chest pain. Denies abdominal pain. Her oxygen had to be increased to 3 L to keep sats in the 90s. Her appetite slowly improving but she only ate half of her meals so far. Appears to be drinking better. Vitals/I&O/Wt Last Vital Signs Temp 98.7 F 05/20/20 12:00 Pulse 95 05/20/20 12:00 Resp 19 H 05/20/20 12:00 BP 122/61 05/20/20 12:00 Pulse Ox 89 L 05/20/20 12:00 05/19/20 05/20/20 05/20/20 22:59 06:59 14:59 Intake Total 480 / 1185 600 / 1785 600 / 600 Output Total 650 / 1350 350 / 350 Balance -170 / -165 600 / 435 250 / 250 Weight last 48 hrs Weight 96.615 kg Weight 96.706 kg Physical Exam Const: COMMON NORMALS: no acute distress and patient oriented x3 Resp: COMMON NORMALS: normal respiratory effort OTHER: Rales lower and mid zones, bilaterally. Cardio: COMMON NORMALS: regular rate, regular rhythm and S2 normal heart sound present RATE: regular rate RHYTHM: regular rhythm HEART SOUNDS: S2 normal heart sound present OTHER: No lower extremity edema GI: COMMON NORMALS: Normal to inspection, nondistended, normoactive bowel sounds present, Soft to palpation and non-tender PALPATION: Yes Soft to palpation Neuro: COMMON NORMALS: patient oriented x3 and no focal motor deficits Data : 05/19/20 05:24 05/19/20 10:20 Micro: Microbiology 05/17/20 14:45 Gram Stain - Final Sputum - Expectorated Sputum Sputum Culture - Preliminary A&P Assessment and plan (1) COVID-19: Patient required high flow oxygen nasal cannula overnight Currently weaned down to 4 L by nasal cannula Goal oxygen saturation of 90 to 92% Continue on dexamethasone and Remdesivir, patient agreed to start treatment and verbalized understanding and agreed with plan Ordered Combivent inhaler Incentive spirometer and flutter valve at bedside, encouraged to use every hour Continue supportive care Status: Acute (2) COPD (chronic obstructive pulmonary disease): Patient with moderate to severe COPD which complicates #1 Last PFTs in our system from 2014 Continue with inhalers as noted above Oxygen per protocol Status: Acute (3) Obstructive sleep apnea: Continue with home CPAP Status: Acute (4) Hypertension: Blood pressure soft at this time, hold lisinopril, hold triamterene HCTZ Also holding HCTZ due to hyponatremia Status: Acute (5) Respiratory failure with hypoxia: Present on admission. Patient mostly uses oxygen at night and occasionally uses 2 L with exertion. She had evidence of hypoxia on ABG on presentation while on 4 L by nasal cannula. Status: Acute Additional A&P Information Hyponatremia: Likely secondary to decreased oral intake and HCTZ, holding HCTZ at this time Acute kidney injury: Appears to be prerenal, will give very gentle IV fluids and monitor intake and output closely. Recheck labs in the morning. Hold GEOFFREY inhibitor DVT prophylaxis: Lovenox Diet: Regular CODE STATUS: Limited resuscitation. DO NOT RESUSCITATE, patient is okay with short-term intubation if respiratory status declines. This was discussed with patient on admission on 05/17/2020 Called and discussed with patient's sister, Dianelys. Updated her on condition and plan of care. She verbalized understanding PLAN: Continue steroid and remdesevir. Continue close monitoring including blood pressure. Obtain labs in a.m. including inflammatory markers. Patient is at high risk for secondary bacterial infection therefore we will go ahead and start patient on Levaquin. Add Protonix for GI protection. Attestations Medical Necessity Statement*: Patient with respiratory failure and COVID-19 infection requires close ICU monitoring and treatment. Time Spent in Patient Care: 16 - 35 minutes Coding Level of Care Code Acute Inspector Optical Instrument for [facility] Diagnoses COVID-19 U07.1 COPD (chronic obstructive pulmonary disease) J44.9 Obstructive sleep apnea G47.33 Hypertension I10 Respiratory failure with hypoxia J96.91
[2020-05-20] MEDS: enoxaparin 40 mg/0.4 mL Syringe SUBCUT (13:48)
[2020-05-20] MEDS: levofloxacin-dextrose 5 % 750 MG/150 ML PREMIX 100 MG IV (15:59)
[2020-05-20] MEDS: pantoprazole DR 40 mg Tablet PO (15:59)
--- NOTE | 2020-05-20 18:45 | PC.NURSE ---
Received bedside report on patient from Brianna Skelton RN. Assumed care at this time.
[2020-05-21] VITALS (25 sets, daily range): BP systolic 99–156; BP diastolic 54–98; PULSE 71–111; RESP 17–23; TEMP 36.2–36.4; O2SAT 87–94
[2020-05-21 05:40] LABS: Basophils % 0.2 %; Eosinophils % 0.4 %; Hematocrit 44.7 % (37.0-47.0); Hemoglobin 14.5 g/dL (11.5-15.3); Lymphocytes # 0.6 10^3/uL (0.8-4.8); Lymphocytes % 10.9 %; Mean Corpuscular HGB Conc 32.4 g/dL (30.0-36.0); Mean Corpuscular Hemoglobin 29.1 pg (28.0-34.0); Mean Corpuscular Volume 89.8 fL (81-99); Mean Platelet Volume 9.1 fL (7.4-10.4); Monocytes # 0.8 10^3/uL (0.2-0.9); Monocytes % 16.7 %; Neutrophils # 3.55 10^3/uL (1.8-7.7); Neutrophils % 70.6 %; Nucleated Red Blood Cells % 0 %; Platelet Count 318 10^3/cmm (130-400); Red Blood Count 4.98 10^6/uL (4.1-5.3); Red Cell Distribution Width 14.1 % (12.1-15.1)
[2020-05-21 06:08] LABS: Ferritin 877 ng/mL (15-150)
[2020-05-21 06:09] LABS: Alanine Aminotransferase 22 U/L (0-33); Albumin Level 3.1 g/dL (3.5-5.2); Alkaline Phosphatase 61 IU/L (35-105); Aspartate Amino Transferase 16 U/L (0-32); Blood Urea Nitrogen 21 mg/dL (8-23); C Reactive Protein 55.7 mg/L (0.0-4.9); Calcium 8.5 mg/dL (8.5-10.5); Carbon Dioxide 25 mmol/L (22-29); Chloride 99 mmol/L (98-107); Glucose 130 mg/dL (65-115); Magnesium 1.8 mg/dL (1.7-2.3); Osmolality Calculated 274 mOsm/kg (285-295); Sodium 133 mmol/L (136-145); Total Bilirubin 0.5 mg/dL (0.15-1.2); Total Protein 6.1 g/dL (6.6-8.7)
[2020-05-21 06:12] LABS: Anion Gap 13.4 (5-19); Potassium 4.4 mmol/L (3.5-5.1)
[2020-05-21 06:19] LABS: D Dimer 0.63 ug/mIFEU (0-0.59)
--- NOTE | 2020-05-21 06:53 | PM.PN ---
Subjective Subjective: Interval history: Patient reports that she is doing better and wants to go home. She still requires 4 L of oxygen to saturate in the high 80s to low 90s. She still desaturates with minimal movement. Reports that she is coughing less. Denies abdominal pain or chest pain. Her last bowel movement was yesterday. Vitals/I&O/Wt Last Vital Signs Temp 97.4 F L 05/20/20 20:00 Pulse 93 05/21/20 05:00 Resp 21 H 05/21/20 01:00 BP 129/86 05/21/20 05:00 Pulse Ox 91 05/21/20 05:00 05/20/20 05/20/20 05/21/20 14:59 22:59 06:59 Intake Total 600 / 600 720 / 1320 100 / 1420 Output Total 350 / 350 300 / 650 300 / 950 Balance 250 / 250 420 / 670 -200 / 470 Weight last 48 hrs Weight 96.615 kg Physical Exam Const: COMMON NORMALS: no acute distress and patient oriented x3 Resp: COMMON NORMALS: normal respiratory effort OTHER: Rales lower and mid zones, bilaterally. Cardio: COMMON NORMALS: regular rate, regular rhythm and S2 normal heart sound present RATE: regular rate RHYTHM: regular rhythm HEART SOUNDS: S2 normal heart sound present OTHER: No lower extremity edema GI: COMMON NORMALS: Normal to inspection, nondistended, normoactive bowel sounds present, Soft to palpation and non-tender PALPATION: Yes Soft to palpation Neuro: COMMON NORMALS: patient oriented x3 and no focal motor deficits Data : 05/21/20 04:55 05/21/20 04:55 Micro: Microbiology 05/17/20 14:45 Gram Stain - Final Sputum - Expectorated Sputum Sputum Culture - Final A&P Assessment and plan (1) COVID-19: Patient required high flow oxygen nasal cannula overnight Currently weaned down to 4 L by nasal cannula Goal oxygen saturation of 90 to 92% Continue on dexamethasone and Remdesivir, patient agreed to start treatment and verbalized understanding and agreed with plan Ordered Combivent inhaler Incentive spirometer and flutter valve at bedside, encouraged to use every hour Continue supportive care Status: Acute (2) COPD (chronic obstructive pulmonary disease): Patient with moderate to severe COPD which complicates #1 Last PFTs in our system from 2014 Continue with inhalers as noted above Oxygen per protocol Status: Acute (3) Obstructive sleep apnea: Continue with home CPAP Status: Acute (4) Hypertension: Blood pressure soft at this time, hold lisinopril, hold triamterene HCTZ Also holding HCTZ due to hyponatremia Status: Acute (5) Respiratory failure with hypoxia: Present on admission. Patient mostly uses oxygen at night and occasionally uses 2 L with exertion. She had evidence of hypoxia on ABG on presentation while on 4 L by nasal cannula. Status: Acute Additional A&P Information Hyponatremia: Likely secondary to decreased oral intake and HCTZ, holding HCTZ at this time Acute kidney injury: Appears to be prerenal, will give very gentle IV fluids and monitor intake and output closely. Recheck labs in the morning. Hold GEOFFREY inhibitor DVT prophylaxis: Lovenox Diet: Regular CODE STATUS: Limited resuscitation. DO NOT RESUSCITATE, patient is okay with short-term intubation if respiratory status declines. This was discussed with patient on admission on 05/17/2020 Called and discussed with patient's sister, Dianelys. Updated her on condition and plan of care. She verbalized understanding PLAN: Continue current monitoring and treatment. Discussed with RN and we will try to get a chair in her room to get her up in the chair. Concern to discharge patient today and she agreed to stay for at least 1 more day. Reports that her daughter will be taking care of her once she is discharged. Her currently is in [facility] with COVID-19 Attestations Medical Necessity Statement*: Patient with hypoxic respite failure requires close ICU monitoring and treatment. Time Spent in Patient Care: 16 - 35 minutes Coding Level of Care Code Acute Process Lead for [facility] Fwd Diagnoses COVID-19 U07.1 COPD (chronic obstructive pulmonary disease) J44.9 Obstructive sleep apnea G47.33 Hypertension I10 Respiratory failure with hypoxia J96.91
[2020-05-21] MEDS: ascorbic acid 500 mg Tablet PO ×2 (09:14→17:32)
[2020-05-21] MEDS: dexamethasone 10 mg/mL INJ 6 MG IVP (09:14)
[2020-05-21] MEDS: aspirin 81 mg Chew Tablet PO (09:14)
[2020-05-21] MEDS: pantoprazole DR 40 mg Tablet PO (09:16)
[2020-05-21] MEDS: ergocalciferol (vitamin D2) 50,000 Unit Capsule 50000 UNIT PO (09:16)
[2020-05-21] MEDS: enoxaparin 40 mg/0.4 mL Syringe SUBCUT (15:39)
[2020-05-21] MEDS: levofloxacin-dextrose 5 % 750 MG/150 ML PREMIX 100 MG IV ×2 (15:39→15:40)
--- NOTE | 2020-05-21 18:45 | PC.NURSE ---
Received bedside report on patient from Herbie Singer RN. Assumed care at this time.
--- NOTE | 2020-05-21 20:19 | PC.NURSE ---
Patient returned to bed after sitting in the chair. Transfer with stand by assist. Tolerated activity fairly well and still becomes short of breath with activity.
[2020-05-22] VITALS (8 sets, daily range): BP systolic 119–184; BP diastolic 68–105; PULSE 73–85; RESP 16–23; TEMP 36.4–36.8; O2SAT 87–95; BMI 37.3
[2020-05-22 06:09] LABS: Basophils % 0.1 %; Eosinophils % 0.4 %; Hematocrit 46.5 % (37.0-47.0); Hemoglobin 14.9 g/dL (11.5-15.3); Lymphocytes # 0.7 10^3/uL (0.8-4.8); Lymphocytes % 9.9 %; Mean Corpuscular Hemoglobin 29.5 pg (28.0-34.0); Mean Corpuscular Volume 92.1 fL (81-99); Mean Platelet Volume 9.1 fL (7.4-10.4); Monocytes # 0.9 10^3/uL (0.2-0.9); Monocytes % 13.2 %; Neutrophils % 75.7 %; Nucleated Red Blood Cells % 0 %; Platelet Count 340 10^3/cmm (130-400); Red Blood Count 5.05 10^6/uL (4.1-5.3); White Blood Count 6.8 10^3/uL (4.0-10.0)
[2020-05-22 06:27] LABS: Alanine Aminotransferase 19 U/L (0-33); Albumin Level 3.2 g/dL (3.5-5.2); Alkaline Phosphatase 63 IU/L (35-105); Anion Gap 13.6 (5-19); Aspartate Amino Transferase 12 U/L (0-32); Blood Urea Nitrogen 20 mg/dL (8-23); Calcium 8.5 mg/dL (8.5-10.5); Carbon Dioxide 27 mmol/L (22-29); Chloride 100 mmol/L (98-107); Glucose 129 mg/dL (65-115); Magnesium 1.8 mg/dL (1.7-2.3); Osmolality Calculated 280 mOsm/kg (285-295); Potassium 4.6 mmol/L (3.5-5.1); Sodium 136 mmol/L (136-145); Total Bilirubin 0.6 mg/dL (0.15-1.2); Total Protein 6.2 g/dL (6.6-8.7)
--- NOTE | 2020-05-22 08:55 | PC.SOCIAL ---
IMM Page 2 of IMM explained to patient by the VICU nurse. Initialed, dated, and timed and asked VICU staff to place in chart. Copy provided to patient.
[2020-05-22] MEDS: ascorbic acid 500 mg Tablet PO (09:56)
[2020-05-22] MEDS: pantoprazole DR 40 mg Tablet PO (09:56)
[2020-05-22] MEDS: dexamethasone 10 mg/mL INJ 6 MG IVP (09:57)
[2020-05-22] MEDS: aspirin 81 mg Chew Tablet PO (10:01)
--- NOTE | 2020-05-22 10:06 | PM.DCS ---
Discharge Providers Date of Admission: 05/17/20 12:09 Date of Discharge: May 22, 2020 Attending Provider at Admission: Dana Arrieta DO Attending Provider at Discharge: Kirill Gracia MD Primary Care Provider: Marlene Nesbitt APN Diagnoses at Discharge Discharge Diagnosis (1) COVID-19: Status: Acute (2) COPD (chronic obstructive pulmonary disease): Status: Acute Problem details: Moderate to severe, last PFT from 2014 showed FEV1 47% (3) Obstructive sleep apnea: Status: Acute (4) Hypertension: Status: Acute (5) Respiratory failure with hypoxia: Status: Acute Reason for Visit Reason for Visit: shortness of breath Covid + Hospital Course Discharge Summary: Patient presented with acute hypoxic respiratory failure secondary to COVID-19 and pneumonia. She was treated with remdesivir, dexamethasone and Levaquin and gradually improved and this morning reports feeling much better and wants to go home. We have discussed regarding importance to come back should her condition worsen. She voiced understanding. She thinks that at home with her CPAP and oxygen she will be doing okay. She lives with her daughter. I will request outpatient follow-up with PCP and pulmonary service. I will continue Levaquin for 5 more days and dexamethasone for a week. Protonix for GI protection. Physical Exam Const: COMMON NORMALS: no acute distress and patient oriented x3 Resp: COMMON NORMALS: normal respiratory effort OTHER: Very minimal bibasilar Rales with overall decreased air movement but otherwise no wheezing or rhonchi. Cardio: COMMON NORMALS: regular rate, regular rhythm and S2 normal heart sound present RATE: regular rate RHYTHM: regular rhythm HEART SOUNDS: S2 normal heart sound present OTHER: No lower extremity edema GI: COMMON NORMALS: Normal to inspection, nondistended, normoactive bowel sounds present, Soft to palpation and non-tender PALPATION: Yes Soft to palpation Neuro: COMMON NORMALS: patient oriented x3 and no focal motor deficits Discharge Data Data Completed and Pending: Completed Studies During Hospitalization Category Date Time Status XR chest 1V cass ble [id number] Routine Exams 05/18/20 06:57 Completed XR chest 1V cass ble [id number] Stat Exams 05/17/20 10:41 Completed Pending at discharge Category Date Time Status Blood Culture Sta t Lab 05/17/20 12:12 Results Complete Blood Co unt w/Auto AM LABS Lab 05/23/20 04:00 Ordered Comprehensive Met abolic Panel AM LA BS Lab 05/23/20 04:00 Ordered Magnesium AM LABS Lab 05/23/20 04:00 Ordered Labs from last 24 hours 05/22/20 05/22/20 04:10 04:10 WBC 6.8 RBC 5.05 Hgb 14.9 Hct 46.5 MCV 92.1 MCH 29.5 MCHC 32.0 RDW 14.0 Plt Count 340 MPV 9.1 Neut % (Auto) 75.7 Lymph % (Auto) 9.9 [place] % (Auto) 13.2 Eos % (Auto) 0.4 Baso % (Auto) 0.1 Neut # (Auto) 5.10 Lymph # (Auto) 0.7 L [place] # (Auto) 0.9 Eos # (Auto) 0.0 Baso # (Auto) 0.0 Nucleated RBC % (a uto) 0 Nucleated RBCs # 0.0 Sodium 136 Potassium 4.6 Chloride 100 Carbon Dioxide 27 Anion Gap 13.6 BUN 20 Creatinine 0.7 GFR Calculation Not Reportable Glucose 129 H Calculated Osmolal ity 280 L Calcium 8.5 Magnesium 1.8 Total Bilirubin 0.6 AST 12 ALT 19 Alkaline Phosphata se 63 Total Protein 6.2 L Albumin 3.2 L Globulin 3.0 Vitals: Last Vital Signs Temp 97.7 F 05/22/20 01:00 Pulse 75 05/22/20 05:00 Resp 20 H 05/22/20 05:00 BP 144/74 05/22/20 05:00 Pulse Ox 95 05/22/20 05:00 Discharge Plan Discharge Patient Disposition: Home Condition: Stable Prescriptions: New pantoprazole 40 mg Tablet,Delayed Release (Dr/Ec) 40 mg PO DAILY Qty: 30 RF: 0 Combivent Respimat 20-100 mcg/actuation Mist 1 puff inhalation QID Qty: 1 RF: 0 dexamethasone 6 mg tablet 6 mg PO DAILY Qty: 7 RF: 0 levofloxacin [Levaquin] 750 mg tablet 750 mg PO DAILY 5 Days Qty: 5 RF: 0 Continued triamterene-hydrochlorothiazid 37.5-25 mg Capsule 1 cap PO DAILY RF: 0 lisinopril 2.5 mg Tablet 2.5 mg PO DAILY RF: 0 Symbicort RF: 0 Vitamin D3 50 mcg (2,000 unit) Capsule 50,000 unit PO DAILY RF: 0 Aspirin Childrens 81 mg Tablet,Chewable 81 mg PO DAILY RF: 0 Discharge Orders: Discharge Order (Routine); Ordered 05/22/20 Ordered By: Kirill Gracia Referrals: Carito Alfaro MD [Physician] - 4-7 days Nesbitt,ZEFERINO Rosario [Primary Care Provider] - 4-7 days Discharge Diet: Advance as tolerated Discharge Activity: Increase activity as tolerated Activity Restrictions/Additional Instructions: Please call your doctor or present to emergency department if your condition worsens or you develop diarrhea, lightheadedness, fatigue or see blood in your stool or black stool. Please follow-up with pulmonary service to adjust your bronchodilators as needed. Please continue using your home oxygen Please discontinue triamterene?hydrochlorothiazide in case if your oral intake decreases. You can restart it again should your appetite and oral intake get back to normal. Discharge Attestations Time Spent in Discharge Care*: greater than 30 min Quality Metrics Clinical Quality Measures During this hospital stay, did patient experience: None Coding Level of Care Code Acute Surgical Supply Assistant for g Fwd Exam Detailed Diagnoses COVID-19 U07.1 COPD (chronic obstructive pulmonary disease) J44.9 Obstructive sleep apnea G47.33 Hypertension I10 Respiratory failure with hypoxia J96.91
== END 2020-05-22 11:10 | disposition home or self-care (01) | DRG 177 ==
LOC: ER 11:18 → ICU 12:22
PROVIDERS: Family Medicine; Admitting Provider Family Medicine; PCP Nurse Practitioner Family; Visit Provider Internal Medicine
DX: U07.1 COVID-19 (principal); J12.89 Other viral pneumonia; J96.01 Acute respiratory failure with hypoxia; J44.0 Chronic obstructive pulmonary disease with (acute) lower respiratory infection; E87.1 Hypo-osmolality and hyponatremia; N17.9 Acute kidney failure, unspecified; G47.33 Obstructive sleep apnea (adult) (pediatric); I10 Essential (primary) hypertension; Z87.891 Personal history of nicotine dependence; Z79.82 Long term (current) use of aspirin
CPT/HCPCS: 12345; 36415; 36600; 71045; 80051; 80053; 82728; 82810; 83605; 83615; 83735; 83880; 83986; 84145; 85025; 85378; 85384; 85610; 85730; 86140; 87040; 87070; 87205; 93005; 94640; 94660; 96372; 96375; 99283; J1100; J1650; J1956; J3535; J7030

== ENCOUNTER 2022-01-26 10:04 | Outpatient (CLI) | payer MEDICARE, OTHER, SELFPAY ==
--- NOTE | 2022-01-26 10:57 | XRR_ITS ---
PROCEDURE INFORMATION: Exam: XR Right Foot Exam date and time: 01/26/2022 11:15 AM Age: 76 years old Clinical indication: Condition or disease; Foot deformities; Other: Calcaneal spur of right foot TECHNIQUE: Imaging protocol: XR Right foot. Views: 1 or 2 views. COMPARISON: No relevant prior studies available. FINDINGS: Bones/joints: Small to moderate calcified heel spur. Soft tissues: Normal. XR/XR foot RT 2V [id number] IMPRESSION: Small to moderate calcified heel spur.
== END 2022-01-26 10:05 | disposition home or self-care (01) ==
LOC: RAD 10:14
PROVIDERS: PCP Nurse Practitioner Family; Visit Provider Nurse Practitioner Family
DX: M77.31 Calcaneal spur, right foot (principal)
CPT/HCPCS: 73620